=== PATIENT | female | born 1950 | race Two or more races ===

== ENCOUNTER 2016-09-13 12:44 | Inpatient (IN) | payer MEDICARE ==
[~2016-09-13] VITALS: Ht 172.7 cm; Wt 100.5 kg
[~2016-09-13 12:44] MED LIST: AML5T PO; CARI-277 PO; MELO-41 PO; SIMV5TAB50 PO
[2016-09-13 13:41] LABS: Basophils # (auto) 0.1 uL; Basophils % (auto) 1.1 % (0.0-2.0); Eosinophils # (auto) 0.1 uL; Eosinophils % (auto) 2.3 % (0.0-7.0); Hematocrit 39.3 % (36.0-46.0); Hemoglobin 12.9 g/dL (12.2-16.2); Lymphocytes # (auto) 1.4 uL; Mean Corpuscular Hemoglobin 30.1 pg (28.0-32.0); Mean Corpuscular Hgb Conc. 32.9 g/dL (32.0-36.0); Mean Corpuscular Volume 91.6 fL (80.0-100.0); Mean Platelet Volume 7.1 fL (7.4-10.4); Monocytes # (auto) 0.7 uL; Monocytes % (auto) 11.3 % (0.0-12.0); Neutrophils # (auto) 3.8 uL; Neutrophils % (auto) 62.3 % (37.0-80.0); Platelet Count (auto) 332 10^3/uL (140-450); Red Cell Distribution Width 14.2 % (11.6-16.0); White Blood Cell 6.1 10^3/uL (4.4-10.8)
[2016-09-13 13:53] LABS: Albumin 3.6 g/dL (3.4-5.0); BUN/Creatinine Ratio 29.7; Bilirubin, Total 0.3 mg/dL (0.2-1.0); Calcium 8.8 mg/dL (8.5-10.1); Potassium 4.9 mmol/L (3.5-5.1); Total Protein 7.9 g/dL (6.4-8.2)
[2016-09-13] MEDS ORDERED: SODIUM CHLORIDE 0.9% 1,000 ML IV ONE (17:23)
[2016-09-13] MEDS ORDERED: cefTRIAXone 1GM/50ML D5W 50 ML IV ONE (17:30)
[2016-09-13] MEDS ORDERED: DOCUSATE SOD 100 MG CAP PO PRN (18:00)
[2016-09-13] MEDS ORDERED: NITROGLYCERIN 0.4 MG SL TAB SL PRN (18:00)
[2016-09-13] MEDS ORDERED: ONDANSETRON HCL 4 MG/2 ML VIAL IV PRN (18:00)
[2016-09-13] MEDS ORDERED: ACETAMINOPHEN 325 MG TAB PO PRN (18:00)
[2016-09-13] MEDS ORDERED: TEMAZEPAM 15 MG CAP PO PRN (18:00)
[2016-09-13] MEDS ORDERED: POTASSIUM CHL 10 Meq TABLET PO ONE (18:00)
[2016-09-13] MEDS ORDERED: CARISOPRODOL 350 MG TAB PO PRN (18:00)
[2016-09-13] MEDS ORDERED: MORPHINE SULF INJ 2 MG/ML SYRINGE 1ML IV PRN (18:00)
[2016-09-13] MEDS ORDERED: FUROSEMIDE 40 MG/4 ML VIAL IV ONE (18:00)
[2016-09-13] MEDS ORDERED: amLODIPine BESYLATE 5 MG TAB PO ONE (18:15)
[2016-09-13] MEDS: ENOXAPARIN SOD 40 MG/0.4 ML SYRINGE SC SCH (18:27)
[2016-09-13] MEDS: MULTIPLE VITAMIN TAB PO SCH (18:27)
[2016-09-13 22:00] VITALS: BP 133/83
[2016-09-13] MEDS: ATORVASTATIN 20 MG TAB PO SCH (23:07)
[2016-09-13] MEDS: CLINDAMYCIN 300MG IV 50 ML IV SCH (23:09)
[2016-09-13] MEDS: HYDROcodone-ACET 5/325MG TAB PO PRN (23:15)
[2016-09-13] MEDS: SODIUM CHLOR 0.9% PF (SALINE LOCK) 10ML VIAL IV SCH (23:34)
[2016-09-14 01:13] VITALS: BP 133/83
[2016-09-14] MEDS ORDERED: HYDR-4416 PO (02:03)
[2016-09-14 04:50] LABS: Basophils # (auto) 0 uL; Basophils % (auto) 0.4 % (0.0-2.0); Eosinophils # (auto) 0.2 uL; Eosinophils % (auto) 3.6 % (0.0-7.0); Hematocrit 36.4 % (36.0-46.0); Lymphocytes # (auto) 1.9 uL; Lymphocytes % (auto) 36.2 % (10.0-50.0); Mean Corpuscular Hemoglobin 30.4 pg (28.0-32.0); Mean Corpuscular Hgb Conc. 32.9 g/dL (32.0-36.0); Mean Corpuscular Volume 92.3 fL (80.0-100.0); Mean Platelet Volume 6.8 fL (7.4-10.4); Monocytes # (auto) 0.7 uL; Monocytes % (auto) 14.6 % (0.0-12.0); Neutrophils # (auto) 2.3 uL; Neutrophils % (auto) 45.2 % (37.0-80.0); Platelet Count (auto) 312 10^3/uL (140-450); Red Cell Distribution Width 14.1 % (11.6-16.0); White Blood Cell 5.1 10^3/uL (4.4-10.8)
[2016-09-14 05:00] VITALS: BP 137/94
[2016-09-14 05:13] LABS: Albumin 3.3 g/dL (3.4-5.0); BUN/Creatinine Ratio 25.4; Bilirubin, Total 0.3 mg/dL (0.2-1.0); Calcium 8.6 mg/dL (8.5-10.1); Potassium 4.2 mmol/L (3.5-5.1); Total Protein 6.9 g/dL (6.4-8.2)
[2016-09-14] MEDS: HYDROcodone-ACET 5/325MG TAB PO PRN ×4 (05:18→22:11)
[2016-09-14] MEDS: CLINDAMYCIN 300MG IV 50 ML IV SCH ×3 (05:19→22:11)
[2016-09-14] MEDS: SODIUM CHLOR 0.9% PF (SALINE LOCK) 10ML VIAL IV SCH ×3 (05:24→22:11)
[2016-09-14 09:00] VITALS: BP 118/60
[2016-09-14] MEDS: cefTRIAXone 1GM/50ML D5W 50 ML IV SCH (09:17)
[2016-09-14] MEDS: ENOXAPARIN SOD 40 MG/0.4 ML SYRINGE SC SCH (09:17)
[2016-09-14] MEDS: FUROSEMIDE 40 MG/4 ML VIAL IV SCH (09:18)
[2016-09-14] MEDS: POTASSIUM CHL 10 Meq TABLET PO SCH (09:18)
[2016-09-14] MEDS: MULTIPLE VITAMIN TAB PO SCH (09:18)
[2016-09-14] MEDS: amLODIPine BESYLATE 5 MG TAB PO SCH (09:19)
[2016-09-14] MEDS: MOBIC 7.5 MG PO SCH (09:19)
[2016-09-14 13:00] VITALS: BP 120/70
[2016-09-14 16:51] VITALS: BP 144/92
[2016-09-14] MEDS: BOOST PLUS 8 ounce PO SCH (18:25)
[2016-09-14 20:00] VITALS: BP 130/61
[2016-09-14] MEDS: ATORVASTATIN 20 MG TAB PO SCH (22:11)
[2016-09-15 05:14] VITALS: BP 126/70
[2016-09-15] MEDS: SODIUM CHLOR 0.9% PF (SALINE LOCK) 10ML VIAL IV SCH ×2 (05:23→14:00)
[2016-09-15] MEDS: CLINDAMYCIN 300MG IV 50 ML IV SCH ×2 (05:23→14:00)
[2016-09-15 06:44] LABS: Basophils # (auto) 0.1 uL; Basophils % (auto) 1.9 % (0.0-2.0); Eosinophils # (auto) 0.4 uL; Eosinophils % (auto) 9.1 % (0.0-7.0); Hematocrit 39.9 % (36.0-46.0); Hemoglobin 13.1 g/dL (12.2-16.2); Lymphocytes # (auto) 1.5 uL; Lymphocytes % (auto) 38.1 % (10.0-50.0); Mean Corpuscular Hemoglobin 30.3 pg (28.0-32.0); Mean Corpuscular Hgb Conc. 32.7 g/dL (32.0-36.0); Mean Corpuscular Volume 92.7 fL (80.0-100.0); Mean Platelet Volume 7.1 fL (7.4-10.4); Monocytes # (auto) 0.5 uL; Monocytes % (auto) 12.5 % (0.0-12.0); Neutrophils # (auto) 1.6 uL; Neutrophils % (auto) 38.4 % (37.0-80.0); Platelet Count (auto) 310 10^3/uL (140-450); Red Cell Distribution Width 13.3 % (11.6-16.0); White Blood Cell 4.1 10^3/uL (4.4-10.8)
[2016-09-15 07:08] LABS: Potassium 4.5 mmol/L (3.5-5.1)
[2016-09-15 07:13] LABS: Albumin 3.3 g/dL (3.4-5.0); BUN/Creatinine Ratio 21.7; Calcium 8.7 mg/dL (8.5-10.1)
[2016-09-15 07:15] LABS: Bilirubin, Total 0.3 mg/dL (0.2-1.0); Total Protein 7.5 g/dL (6.4-8.2)
[2016-09-15] MEDS: HYDROcodone-ACET 5/325MG TAB PO PRN (07:35)
[2016-09-15] MEDS: BOOST PLUS 8 ounce PO SCH ×2 (08:00→12:27)
[2016-09-15 08:45] VITALS: BP 143/70
[2016-09-15] MEDS: FUROSEMIDE 40 MG/4 ML VIAL IV SCH (09:19)
[2016-09-15] MEDS: cefTRIAXone 1GM/50ML D5W 50 ML IV SCH (09:19)
[2016-09-15] MEDS: ENOXAPARIN SOD 40 MG/0.4 ML SYRINGE SC SCH (09:19)
[2016-09-15] MEDS: MOBIC 7.5 MG PO SCH (09:20)
[2016-09-15] MEDS: POTASSIUM CHL 10 Meq TABLET PO SCH (09:20)
[2016-09-15] MEDS: amLODIPine BESYLATE 5 MG TAB PO SCH (09:20)
[2016-09-15] MEDS: MULTIPLE VITAMIN TAB PO SCH (09:20)
[2016-09-15 12:59] VITALS: BP 144/78
[2016-09-15 13:33] VITALS: BP 143/70
== END 2016-09-15 15:18 | disposition home or self-care (01) | DRG 603 ==
LOC: ER 12:46 → TELE 12:47 → TELE-EAST 21:31 → EAST 09-14 09:20
PROVIDERS: ADMIT Internal Medicine; ATTEND Internal Medicine
DX: L03.115 Cellulitis of right lower limb (principal); L03.116 Cellulitis of left lower limb; E78.5 Hyperlipidemia, unspecified; I87.2 Venous insufficiency (chronic) (peripheral); Z83.3 Family history of diabetes mellitus; Z82.3 Family history of stroke; Z82.49 Family history of ischemic heart disease and other diseases of the circulatory system; Z88.8 Allergy status to other drugs, medicaments and biological substances; Z79.899 Other long term (current) drug therapy; Z90.710 Acquired absence of both cervix and uterus; I10 Essential (primary) hypertension
CPT/HCPCS: 36415; 80053; 85025; 87040; 93306; 93970; 96365; 96375; J0696; J3490

== ENCOUNTER → 2017-03-04 | Outpatient (CLI) | payer MEDICARE ==
[~2017-03-04] MED LIST changes: +HYDR-4416 PO
== END | disposition home or self-care (01) ==
LOC: LAB 15:52
PROVIDERS: ATTEND Family Medicine
DX: R21 Rash and other nonspecific skin eruption (principal)
CPT/HCPCS: 87205

== ENCOUNTER → 2017-11-14 | Outpatient (CLI) | payer MEDICARE ==
[2017-11-14 08:28] LABS: Basophils # (auto) 0 uL; Basophils % (auto) 0.5 % (0.0-2.0); Eosinophils # (auto) 0.1 uL; Hemoglobin 13.4 g/dL (12.2-16.2); Lymphocytes # (auto) 1.3 uL; Lymphocytes % (auto) 30.9 % (10.0-50.0); Mean Corpuscular Hemoglobin 31.1 pg (28.0-32.0); Mean Corpuscular Hgb Conc. 33.5 g/dL (32.0-36.0); Mean Corpuscular Volume 92.7 fL (80.0-100.0); Monocytes # (auto) 0.4 uL; Monocytes % (auto) 9.8 % (0.0-12.0); Neutrophils # (auto) 2.4 uL; Neutrophils % (auto) 55.8 % (37.0-80.0); Nucleated Red Blood Cells % 0.1 %; Platelet Count (auto) 280 10^3/uL (140-450); Red Blood Cells 4.31 10^6/uL (4.0-5.20); White Blood Cell 4.2 10^3/uL (4.4-10.8)
[2017-11-14 08:51] LABS: Urine Bacteria FEW /hpf (None Seen); Urine Blood Negative /uL (Negative); Urine Mucus FEW (None Seen); Urine Specific Gravity 1.015 (1.001-1.035); Urine WBC 1 /hpf (0 - 5)
[2017-11-14 09:10] LABS: Cholesterol 213 mg/dL (< 200); HDL Cholesterol 123 mg/dL (40-59); LDL Cholesterol 76 mg/dL (< 100); Triglycerides 53 mg/dL (< 150)
== END | disposition home or self-care (01) ==
LOC: LAB 08:01
PROVIDERS: ATTEND Family Medicine
DX: I10 Essential (primary) hypertension (principal); E66.9 Obesity, unspecified; E78.2 Mixed hyperlipidemia; M17.9 Osteoarthritis of knee, unspecified; R79.89 Other specified abnormal findings of blood chemistry
CPT/HCPCS: 36415; 80061; 81001; 82607; 83036; 84443; 85025

== ENCOUNTER → 2019-01-12 | Outpatient (CLI) | payer MEDICARE ==
[2019-01-12 10:15] LABS: Basophils # (auto) 0 uL; Basophils % (auto) 0.4 % (0.0-2.0); Eosinophils # (auto) 0.1 uL; Eosinophils % (auto) 2.6 % (0.0-7.0); Hemoglobin 13.6 g/dL (12.2-16.2); Lymphocytes # (auto) 1.1 uL; Lymphocytes % (auto) 25.5 % (10.0-50.0); Mean Corpuscular Hemoglobin 31.1 pg (28.0-32.0); Mean Corpuscular Volume 91.7 fL (80.0-100.0); Monocytes # (auto) 0.3 uL; Monocytes % (auto) 8.1 % (0.0-12.0); Neutrophils # (auto) 2.6 uL; Neutrophils % (auto) 63.4 % (37.0-80.0); Nucleated Red Blood Cells % 0.1 %; Platelet Count (auto) 221 10^3/uL (140-450); Red Blood Cells 4.36 10^6/uL (4.0-5.20); Red Cell Distribution Width 14.2 % (11.8-14.3); White Blood Cell 4.1 10^3/uL (4.4-10.8)
[2019-01-12 10:23] LABS: Urine Bacteria FEW /hpf (None Seen); Urine Blood Negative /uL (Negative); Urine Specific Gravity 1.013 (1.001-1.035); Urine WBC 2 /hpf (0 - 5)
[2019-01-12 10:40] LABS: Potassium 4.5 mmol/L (3.5-5.1)
[2019-01-12 10:45] LABS: BUN/Creatinine Ratio 24.4; Bilirubin, Total 0.4 mg/dL (0.2-1.0); Calcium 9.4 mg/dL (8.5-10.1); Total Protein 7.9 g/dL (6.4-8.2)
== END | disposition home or self-care (01) ==
LOC: LAB 09:45
PROVIDERS: ATTEND Family Medicine
DX: E78.49 Other hyperlipidemia (principal); I10 Essential (primary) hypertension; E66.9 Obesity, unspecified; Z79.899 Other long term (current) drug therapy
CPT/HCPCS: 36415; 80053; 80061; 81001; 82306; 83036; 84443; 85025

== ENCOUNTER → 2019-05-18 | Outpatient (CLI) | payer MEDICARE ==
[~2019-05-18] MED LIST changes: -HYDR-4416 PO; +HYDR-4611 PO; -MELO-41 PO; +MELO7.5T9 PO
[2019-05-18 13:32] LABS: Albumin 3.9 g/dL (3.4-5.0); Potassium 4.6 mmol/L (3.5-5.1)
[2019-05-18 13:39] LABS: BUN/Creatinine Ratio 25.5; Bilirubin, Total 0.4 mg/dL (0.2-1.0); Calcium 8.9 mg/dL (8.5-10.1)
== END | disposition home or self-care (01) ==
LOC: LAB 11:48
PROVIDERS: ATTEND Family Medicine
DX: E78.49 Other hyperlipidemia (principal); I10 Essential (primary) hypertension; E66.09 Other obesity due to excess calories
CPT/HCPCS: 36415; 80053; 80061

== ENCOUNTER 2020-06-19 11:27 | Emergency (ER) | payer MEDICARE ==
[~2020-06-19] VITALS: Ht 170.2 cm; Wt 90.7 kg
[2020-06-19] MEDS ORDERED: SODIUM CHLORIDE 0.9% 1,000 ML IV ONE (12:30)
[2020-06-19 13:11] LABS: Basophils # (auto) 0 10 ^3/uL (0-0.2); Basophils % (auto) 0.3 % (0.0-2.0); Eosinophils # (auto) 0.1 10 ^3/uL (0-0.8); Eosinophils % (auto) 1.4 % (0.0-7.0); Hematocrit 38.6 % (36.0-46.0); Hemoglobin 13.1 g/dL (12.2-16.2); Lymphocytes # (auto) 0.9 10 ^3/uL (0.4-5.4); Lymphocytes % (auto) 16.1 % (10.0-50.0); Mean Corpuscular Volume 91.4 fL (80.0-100.0); Monocytes # (auto) 0.3 10 ^3/uL (0-1.3); Monocytes % (auto) 5.6 % (0.0-12.0); Neutrophils # (auto) 4.2 10 ^3/uL (1.6-8.6); Neutrophils % (auto) 76.6 % (37.0-80.0); Nucleated Red Blood Cells % 0.1 %; Platelet Count (auto) 232 10^3/uL (140-450); Red Blood Cells 4.23 10^6/uL (4.0-5.20); Red Cell Distribution Width 13.6 % (11.8-14.3); White Blood Cell 5.4 10^3/uL (4.4-10.8)
[2020-06-19 13:18] LABS: Albumin 3.8 g/dL (3.4-5.0); Anion Gap 6 (5-15); Blood Urea Nitrogen 25 mg/dL (7-18); Calcium 8.9 mg/dL (8.5-10.1); Carbon Dioxide 27 mmol/L (21-32); Chloride 107 mmol/L (98-107); Glucose 111 mg/dL (74-106); Potassium 4.4 mmol/L (3.5-5.1); Sodium 140 mmol/L (136-145)
[2020-06-19 13:24] LABS: Alanine Aminotransferase 13 U/L (13-56); Alkaline Phosphatase 74 U/L (45-117); Aspartate Aminotransferase 18 U/L (15-37); BUN/Creatinine Ratio 22.7; Bilirubin, Total 0.3 mg/dL (0.2-1.0); GFR African American 63 mL/min; GFR Non-African American 52 mL/min; Total Protein 7.6 g/dL (6.4-8.2)
[2020-06-19 15:00] VITALS: BP 129/61
== END 2020-06-19 15:19 | disposition home or self-care (01) ==
LOC: ER 11:27
DX: R19.7 Diarrhea, unspecified (principal); E86.0 Dehydration; E78.5 Hyperlipidemia, unspecified; I10 Essential (primary) hypertension; Z79.899 Other long term (current) drug therapy; Z90.710 Acquired absence of both cervix and uterus
CPT/HCPCS: 36415; 80053; 84484; 85025; 93005; 96360; 99284; J7030

== ENCOUNTER → 2020-08-13 | Outpatient (CLI) | payer MEDICARE ==
[2020-08-13 10:06] LABS: Basophils # (auto) 0 10 ^3/uL (0-0.2); Basophils % (auto) 0.3 % (0.0-2.0); Eosinophils # (auto) 0.2 10 ^3/uL (0-0.8); Eosinophils % (auto) 4.2 % (0.0-7.0); Hematocrit 39.5 % (36.0-46.0); Hemoglobin 12.8 g/dL (12.2-16.2); Lymphocytes # (auto) 1.7 10 ^3/uL (0.4-5.4); Lymphocytes % (auto) 35.2 % (10.0-50.0); Mean Corpuscular Hemoglobin 30.1 pg (28.0-32.0); Mean Corpuscular Hgb Conc. 32.4 g/dL (32.0-36.0); Mean Corpuscular Volume 92.8 fL (80.0-100.0); Monocytes # (auto) 0.5 10 ^3/uL (0-1.3); Monocytes % (auto) 9.6 % (0.0-12.0); Neutrophils # (auto) 2.5 10 ^3/uL (1.6-8.6); Neutrophils % (auto) 50.7 % (37.0-80.0); Nucleated Red Blood Cells % 0.1 %; Platelet Count (auto) 246 10^3/uL (140-450); Red Blood Cells 4.26 10^6/uL (4.0-5.20); Red Cell Distribution Width 14.2 % (11.8-14.3); White Blood Cell 4.9 10^3/uL (4.4-10.8)
[2020-08-13 11:00] LABS: Albumin 3.7 g/dL (3.4-5.0); Potassium 4.6 mmol/L (3.5-5.1)
[2020-08-13 11:09] LABS: BUN/Creatinine Ratio 22.2; Bilirubin, Total 0.4 mg/dL (0.2-1.0); Total Protein 7.6 g/dL (6.4-8.2)
[2020-08-14 12:39] LABS: Urine Bacteria NONE SEEN /hpf (None Seen); Urine Blood Negative /uL (Negative); Urine Specific Gravity 1.014 (1.001-1.035); Urine WBC 2 /hpf (0 - 5)
== END | disposition home or self-care (01) ==
LOC: LAB 09:52
PROVIDERS: ATTEND Family Medicine
DX: I10 Essential (primary) hypertension (principal); E78.49 Other hyperlipidemia; R73.09 Other abnormal glucose; Z79.899 Other long term (current) drug therapy
CPT/HCPCS: 36415; 80053; 80061; 81001; 82306; 82607; 83036; 85025

== ENCOUNTER → 2021-09-29 | Outpatient (CLI) | payer MEDICARE ==
[2021-09-29 08:07] LABS: Basophils # (auto) 0 10 ^3/uL (0-0.2); Basophils % (auto) 0.6 % (0.0-2.0); Eosinophils # (auto) 0.2 10 ^3/uL (0-0.8); Eosinophils % (auto) 4.3 % (0.0-7.0); Hematocrit 39.3 % (36.0-46.0); Hemoglobin 13.5 g/dL (12.2-16.2); Lymphocytes # (auto) 1.3 10 ^3/uL (0.4-5.4); Lymphocytes % (auto) 27.4 % (10.0-50.0); Mean Corpuscular Hemoglobin 31.4 pg (28.0-32.0); Mean Corpuscular Hgb Conc. 34.3 g/dL (32.0-36.0); Mean Corpuscular Volume 91.6 fL (80.0-100.0); Monocytes # (auto) 0.4 10 ^3/uL (0-1.3); Monocytes % (auto) 8.1 % (0.0-12.0); Neutrophils # (auto) 2.7 10 ^3/uL (1.6-8.6); Neutrophils % (auto) 59.6 % (37.0-80.0); Nucleated Red Blood Cells % 0.1 %; Red Blood Cells 4.29 10^6/uL (4.0-5.20); Red Cell Distribution Width 13.5 % (11.8-14.3); White Blood Cell 4.6 10^3/uL (4.4-10.8)
[2021-09-29 08:11] LABS: Urine Bacteria NONE SEEN /hpf (None Seen); Urine Blood Negative /uL (Negative); Urine WBC <1 /hpf (0 - 5)
[2021-09-29 08:32] LABS: Albumin 3.8 g/dL (3.4-5.0); BUN/Creatinine Ratio 24.1; Potassium 4.7 mmol/L (3.5-5.1)
[2021-09-29 08:36] LABS: Bilirubin, Total 0.3 mg/dL (0.2-1.0); Total Protein 7.5 g/dL (6.4-8.2)
== END | disposition home or self-care (01) ==
LOC: LAB 07:46
PROVIDERS: ATTEND Family Medicine
DX: E55.9 Vitamin D deficiency, unspecified (principal); E78.49 Other hyperlipidemia; I10 Essential (primary) hypertension; E66.9 Obesity, unspecified; M25.561 Pain in right knee; R73.09 Other abnormal glucose; Z83.3 Family history of diabetes mellitus
CPT/HCPCS: 36415; 80053; 80061; 81001; 82306; 83036; 84443; 85025

== ENCOUNTER 2022-04-30 08:40 | Inpatient (IN) | payer MEDICARE ==
[~2022-04-30] VITALS: Ht 170.2 cm; Wt 96.3 kg
[2022-04-30 10:03] LABS: Basophils # (auto) 0 10 ^3/uL (0-0.2); Basophils % (auto) 0.2 % (0.0-2.0); Eosinophils # (auto) 0 10 ^3/uL (0-0.8); Eosinophils % (auto) 0.3 % (0.0-7.0); Hematocrit 41.1 % (36.0-46.0); Hemoglobin 13.7 g/dL (12.2-16.2); Lymphocytes # (auto) 0.5 10 ^3/uL (0.4-5.4); Lymphocytes % (auto) 5.4 % (10.0-50.0); Mean Corpuscular Hemoglobin 30.5 pg (28.0-32.0); Mean Corpuscular Hgb Conc. 33.2 g/dL (32.0-36.0); Mean Corpuscular Volume 91.7 fL (80.0-100.0); Monocytes # (auto) 0.3 10 ^3/uL (0-1.3); Monocytes % (auto) 3.6 % (0.0-12.0); Neutrophils # (auto) 8.7 10 ^3/uL (1.6-8.6); Neutrophils % (auto) 90.5 % (37.0-80.0); Red Blood Cells 4.48 10^6/uL (4.0-5.20); Red Cell Distribution Width 13.9 % (11.8-14.3); White Blood Cell 9.6 10^3/uL (4.4-10.8)
[2022-04-30 10:38] LABS: INR 0.92 (0.9-1.15); Partial Thromboplastin Time 26.8 sec (24.6-33.4)
[2022-04-30 10:48] LABS: Albumin 3.9 g/dL (3.4-5.0); Calcium 9.1 mg/dL (8.5-10.1); Magnesium 2.1 mg/dL (1.6-2.6); Potassium 4.5 mmol/L (3.5-5.1)
[2022-04-30 10:51] LABS: Bilirubin, Total 0.6 mg/dL (0.2-1.0); Total Protein 7.6 g/dL (6.4-8.2)
[2022-04-30] MEDS ORDERED: NITROGLYCERIN 0.4 MG SL TAB SL ONE (11:45)
[2022-04-30] MEDS ORDERED: ASPirin 325 MG TAB PO ONE (11:45)
[2022-04-30] MEDS ORDERED: MORPHINE SULFATE INJ 2 MG/ml SYRG IV PRN (13:45)
[2022-04-30] MEDS ORDERED: ONDANSETRON HCL 4 MG/2 ML VIAL IV PRN (13:45)
[2022-04-30] MEDS ORDERED: NITROGLYCERIN 0.4 MG SL TAB SL PRN (13:45)
[2022-04-30] MEDS: SODIUM CHLOR 0.9% PF (SALINE LOCK) 10ML VIAL/SYR IV SCH ×2 (14:08→22:03)
[2022-04-30 17:47] LABS: Urine Amorphous Crystal FEW /hpf (None Seen); Urine Bacteria NONE SEEN /hpf (None Seen); Urine Blood Negative /uL (Negative); Urine Mucus FEW (None Seen); Urine Specific Gravity 1.015 (1.001-1.035); Urine WBC <1 /hpf (0 - 5)
[2022-04-30 20:14] VITALS: BP 131/53
[2022-04-30 22:00] VITALS: BP 121/46
[2022-05-01 05:00] VITALS: BP 136/61
[2022-05-01] MEDS: MORPHINE SULFATE INJ 2 MG/ml SYRG IV PRN ×2 (05:42→11:34)
[2022-05-01] MEDS: SODIUM CHLOR 0.9% PF (SALINE LOCK) 10ML VIAL/SYR IV SCH ×3 (05:42→22:20)
[2022-05-01 06:15] LABS: BUN/Creatinine Ratio 27.3; Calcium 8.9 mg/dL (8.5-10.1); Potassium 4.3 mmol/L (3.5-5.1)
[2022-05-01 06:37] LABS: Basophils # (auto) 0 10 ^3/uL (0-0.2); Basophils % (auto) 0.2 % (0.0-2.0); Eosinophils # (auto) 0.1 10 ^3/uL (0-0.8); Eosinophils % (auto) 1.8 % (0.0-7.0); Hematocrit 38.3 % (36.0-46.0); Hemoglobin 12.8 g/dL (12.2-16.2); Lymphocytes # (auto) 1.3 10 ^3/uL (0.4-5.4); Lymphocytes % (auto) 21.1 % (10.0-50.0); Mean Corpuscular Hemoglobin 30.6 pg (28.0-32.0); Mean Corpuscular Hgb Conc. 33.3 g/dL (32.0-36.0); Mean Corpuscular Volume 91.7 fL (80.0-100.0); Monocytes # (auto) 0.7 10 ^3/uL (0-1.3); Monocytes % (auto) 10.7 % (0.0-12.0); Neutrophils # (auto) 4.2 10 ^3/uL (1.6-8.6); Neutrophils % (auto) 66.2 % (37.0-80.0); Nucleated Red Blood Cells % 0.1 %; Red Blood Cells 4.17 10^6/uL (4.0-5.20); Red Cell Distribution Width 14.1 % (11.8-14.3); White Blood Cell 6.3 10^3/uL (4.4-10.8)
[2022-05-01 08:00] VITALS: BP 135/61
[2022-05-01 09:00] VITALS: BP 135/61
[2022-05-01] MEDS ORDERED: CARI-277 PO (09:08)
[2022-05-01] MEDS ORDERED: TRIA75TA55 PO (09:08)
[2022-05-01] MEDS ORDERED: MELO1TAB56 PO (09:08)
[2022-05-01] MEDS ORDERED: SIMV-13 PO (09:08)
[2022-05-01] MEDS ORDERED: MORP1TAB14 PO (09:12)
[2022-05-01] MEDS ORDERED: CALCTAB62 OR (09:12)
[2022-05-01] MEDS ORDERED: HYDR-4798 PO (09:12)
[2022-05-01] MEDS: ASPirin 81 mg TAB PO SCH (10:00)
[2022-05-01] MEDS ORDERED: ENOXAPARIN SOD 40 MG/0.4 ML SYRINGE SC ONE (12:00)
[2022-05-01 12:21] LABS: Cholesterol 178 mg/dL (< 200)
[2022-05-01 12:24] LABS: HDL Cholesterol 126 mg/dL (40-59); LDL Cholesterol 59 mg/dL (< 100); Triglycerides 38 mg/dL (< 150)
[2022-05-01] MEDS ORDERED: HYDROcodone-ACET 10/325MG TAB PO PRN (12:45)
[2022-05-01 13:00] VITALS: BP 118/64
[2022-05-01] MEDS: TRIAMTERENE/HCTZ 37.5/25 MG CAP/TAB PO SCH (13:57)
[2022-05-01] MEDS ORDERED: methylPREDNISolone SOD SUCC 40 MG/ML VL IV ONE (14:15)
[2022-05-01 17:18] VITALS: BP 138/61
[2022-05-01] MEDS ORDERED: IOHEXOL 350 MG/ML 100ML IJ ONE (17:53)
[2022-05-01] MEDS ORDERED: ATORVASTATIN 20 MG TAB PO SCH (18:00)
[2022-05-01 22:00] VITALS: BP 131/57
[2022-05-01] MEDS: MORPHINE SULF 30 mg ER tab PO SCH (22:20)
[2022-05-02 05:00] VITALS: BP 152/79
[2022-05-02] MEDS: SODIUM CHLOR 0.9% PF (SALINE LOCK) 10ML VIAL/SYR IV SCH ×3 (06:13→21:38)
[2022-05-02 08:00] VITALS: BP 138/62
[2022-05-02 09:00] VITALS: BP 138/61
[2022-05-02] MEDS: amLODIPine BESYLATE 5 MG TAB PO SCH (09:46)
[2022-05-02] MEDS: ENOXAPARIN SOD 40 MG/0.4 ML SYRINGE SC SCH (09:51)
[2022-05-02] MEDS: TRIAMTERENE/HCTZ 37.5/25 MG CAP/TAB PO SCH (09:51)
[2022-05-02] MEDS: MORPHINE SULF 30 mg ER tab PO SCH ×3 (09:51→21:39)
[2022-05-02] MEDS: MELOXICAM 15 MG PO SCH (09:52)
[2022-05-02] MEDS: ASPirin 81 mg TAB PO SCH (09:52)
[2022-05-02 13:11] VITALS: BP 112/55
[2022-05-02] MEDS ORDERED: methylPREDNISolone SOD SUCC 40 MG/ML VL IV ONE (14:15)
[2022-05-02 17:00] VITALS: BP 133/51
[2022-05-02 22:00] VITALS: BP 119/48
[2022-05-02] MEDS ORDERED: CARISOPRODOL 350 MG TAB PO SCH (22:00)
[2022-05-03 05:00] VITALS: BP 122/56
[2022-05-03] MEDS: SODIUM CHLOR 0.9% PF (SALINE LOCK) 10ML VIAL/SYR IV SCH ×2 (05:37→13:40)
[2022-05-03] MEDS ORDERED: ADENOSINE 81 MG in GIVE UN-DILUTED 0 ML IV STA (08:22)
[2022-05-03 09:00] VITALS: BP 129/53
[2022-05-03 09:21] VITALS: BP 164/74
[2022-05-03] MEDS: TRIAMTERENE/HCTZ 37.5/25 MG CAP/TAB PO SCH (10:40)
[2022-05-03] MEDS: ASPirin 81 mg TAB PO SCH (10:40)
[2022-05-03] MEDS: amLODIPine BESYLATE 5 MG TAB PO SCH (10:40)
[2022-05-03] MEDS: MELOXICAM 15 MG PO SCH (10:40)
[2022-05-03] MEDS: MORPHINE SULF 30 mg ER tab PO SCH (10:41)
[2022-05-03] MEDS: ENOXAPARIN SOD 40 MG/0.4 ML SYRINGE SC SCH (10:41)
[2022-05-03] MEDS ORDERED: PRED1PAK9 PO (11:13)
[2022-05-03] MEDS ORDERED: FAMO20TA10 PO (11:14)
[2022-05-03 13:00] VITALS: BP 103/53
[2022-05-03 14:59] VITALS: BP 129/53
== END 2022-05-03 16:40 | disposition home or self-care (01) | DRG 303 ==
LOC: ER 08:40 → TELE 13:51 → TELE-EAST 18:51
PROVIDERS: ADMIT Nurse Practitioner Family; ATTEND Internal Medicine
DX: I25.10 Atherosclerotic heart disease of native coronary artery without angina pectoris (principal); E66.9 Obesity, unspecified; E78.5 Hyperlipidemia, unspecified; M19.90 Unspecified osteoarthritis, unspecified site; I10 Essential (primary) hypertension; M06.9 Rheumatoid arthritis, unspecified; R79.82 Elevated C-reactive protein (CRP); G89.29 Other chronic pain; Z96.653 Presence of artificial knee joint, bilateral; Z82.3 Family history of stroke; Z82.49 Family history of ischemic heart disease and other diseases of the circulatory system; Z83.3 Family history of diabetes mellitus; Z90.710 Acquired absence of both cervix and uterus; Z68.33 Body mass index [BMI] 33.0-33.9, adult
CPT/HCPCS: 36415; 71045; 71275; 78452; 80048; 80053; 80061; 81001; 82550; 83735; 83880; 84443; 84484; 85025; 85379; 85610; 85652; 85730; 86038; 86141; 86431; 93005; 93017; 93306; 96374; 96375; G0378; J0153; J2405

== ENCOUNTER → 2022-05-12 | Outpatient (CLI) | payer MEDICARE ==
[~2022-05-12] MED LIST changes: +CALCTAB62 OR; +FAMO20TA10 PO; +HYDR-4798 PO; +MELO1TAB56 PO; -MELO7.5T9 PO; +MORP1TAB14 PO; +PRED1PAK9 PO; +SIMV-13 PO; -SIMV5TAB50 PO; +TRIA75TA55 PO
[2022-05-12 10:32] LABS: Cholesterol 267 mg/dL (< 200)
[2022-05-12 10:34] LABS: HDL Cholesterol 136 mg/dL (40-59); LDL Cholesterol 128 mg/dL (< 100); Triglycerides 62 mg/dL (< 150)
== END | disposition home or self-care (01) ==
LOC: LAB 09:22
PROVIDERS: ATTEND Student in an Organized Health Care Education/Training Program
DX: I10 Essential (primary) hypertension (principal); M25.50 Pain in unspecified joint; E78.5 Hyperlipidemia, unspecified; E66.9 Obesity, unspecified
CPT/HCPCS: 36415; 80061; 86038; 86431

== ENCOUNTER → 2022-10-20 | Outpatient (CLI) | payer MEDICARE ==
[2022-10-20 09:08] LABS: Basophils # (auto) 0 10 ^3/uL (0-0.2); Basophils % (auto) 0.7 % (0.0-2.0); Eosinophils # (auto) 0.1 10 ^3/uL (0-0.8); Eosinophils % (auto) 2.8 % (0.0-7.0); Hematocrit 41.4 % (36.0-46.0); Hemoglobin 13.8 g/dL (12.2-16.2); Lymphocytes % (auto) 22.5 % (10.0-50.0); Mean Corpuscular Hemoglobin 31.4 pg (28.0-32.0); Mean Corpuscular Hgb Conc. 33.3 g/dL (32.0-36.0); Mean Corpuscular Volume 94.2 fL (80.0-100.0); Monocytes # (auto) 0.5 10 ^3/uL (0-1.3); Monocytes % (auto) 10.8 % (0.0-12.0); Neutrophils # (auto) 2.7 10 ^3/uL (1.6-8.6); Neutrophils % (auto) 63.2 % (37.0-80.0); Nucleated Red Blood Cells % 0.1 %; Red Blood Cells 4.39 10^6/uL (4.0-5.20); Red Cell Distribution Width 14.5 % (11.8-14.3); White Blood Cell 4.3 10^3/uL (4.4-10.8)
[2022-10-20 10:09] LABS: Potassium 4.6 mmol/L (3.5-5.1)
[2022-10-20 10:21] LABS: Albumin 3.6 g/dL (3.4-5.0); BUN/Creatinine Ratio 24.7; Bilirubin, Total 0.3 mg/dL (0.2-1.0); Total Protein 7.4 g/dL (6.4-8.2)
== END | disposition home or self-care (01) ==
LOC: LAB 08:49
PROVIDERS: ATTEND Student in an Organized Health Care Education/Training Program
DX: I10 Essential (primary) hypertension (principal); E78.5 Hyperlipidemia, unspecified; E66.09 Other obesity due to excess calories
CPT/HCPCS: 36415; 80053; 80061; 82274; 85025

== ENCOUNTER 2024-02-11 10:03 | Inpatient (IN) | payer MEDICARE ==
[~2024-02-11] VITALS: Ht 170.2 cm; Wt 91.0 kg
[~2024-02-11 10:03] MED LIST changes: +MELO15TA29 PO; -MELO1TAB56 PO; -SIMV-13 PO; +SIMV40TA18 PO
[2024-02-11] MEDS: amLODIPine BESYLATE 5 MG TAB PO ONE (10:37)
[2024-02-11] MEDS: HYDROcodone-ACET 10/325MG TAB PO ONE (10:55)
[2024-02-11] MEDS: KETOROLAC TROMETH 30 MG/ML 1ML VIAL IV ONE (11:02)
[2024-02-11 11:10] VITALS: PULSE 81; RESP 19; O2SAT 97
[2024-02-11 11:40] LABS: Basophils # (auto) 0 10 ^3/uL (0-0.2); Basophils % (auto) 0.2 % (0.0-2.0); Eosinophils # (auto) 0 10 ^3/uL (0-0.8); Eosinophils % (auto) 0.7 % (0.0-7.0); Hematocrit 40.3 % (36.0-46.0); Hemoglobin 13.8 g/dL (12.2-16.2); Lymphocytes % (auto) 15.5 % (10.0-50.0); Mean Corpuscular Hemoglobin 31.7 pg (28.0-32.0); Mean Corpuscular Hgb Conc. 34.3 g/dL (32.0-36.0); Mean Corpuscular Volume 92.3 fL (80.0-100.0); Monocytes # (auto) 0.5 10 ^3/uL (0-1.3); Monocytes % (auto) 8.3 % (0.0-12.0); Neutrophils # (auto) 4.9 10 ^3/uL (1.6-8.6); Neutrophils % (auto) 75.3 % (37.0-80.0); Nucleated Red Blood Cells % 0.1 %; Red Blood Cells 4.37 10^6/uL (4.0-5.20); Red Cell Distribution Width 14.4 % (11.8-14.3); White Blood Cell 6.5 10^3/uL (4.4-10.8)
[2024-02-11 11:48] LABS: Chloride 107 mmol/L (98-107); Sodium 140 mmol/L (136-145)
[2024-02-11 11:49] LABS: Anion Gap 7 (5-15); Carbon Dioxide 26 mmol/L (20-30)
[2024-02-11 11:50] LABS: Calcium 10.4 mg/dL (8.5-10.1)
[2024-02-11 11:54] LABS: BUN/Creatinine Ratio 22.9 (10.0-20.0); Blood Urea Nitrogen 19 mg/dL (9-23); Glucose 111 mg/dL (74-106)
[2024-02-11] MEDS ORDERED: DOCUSATE SOD 100 MG CAP PO PRN (14:15)
[2024-02-11] MEDS: SODIUM CHLORIDE 0.9% 1,000 ML IV SCH (14:15)
[2024-02-11] MEDS: HYDROmorphone HCL 2 MG/ML VL/or syr IV ONE ×2 (15:19→15:56)
[2024-02-11] MEDS: DexAMETHasone SOD PHOS 10MG/1ML VIAL INJ IV ONE (16:15)
[2024-02-11] MEDS ORDERED: DEXTROSE (50%) 50ML SYRG IV PRN (16:15)
[2024-02-11] MEDS: InsuLIN REG 1unit/0.01ml Soln (100units/ml) SC SCH (17:00)
[2024-02-11] MEDS: ACCU-CHEK COMFORT CURVE STRIP VI SCH (17:00)
[2024-02-11] MEDS: LORazepam 2MG/ML-1ML VIAL IV ONE (18:15)
[2024-02-11] MEDS: HYDROmorphone HCL 2 MG/ML VL/or syr IV PRN (19:24)
[2024-02-11 19:30] VITALS: PULSE 66; RESP 20; O2SAT 98
[2024-02-11] MEDS: FAMOTIDINE 20 MG TAB PO SCH (23:07)
[2024-02-11] MEDS: ATORVASTATIN 20 MG TAB PO SCH (23:07)
[2024-02-11] MEDS: DexAMETHasone SOD PHOS 4 MG/1ML SDV INJ IV SCH (23:07)
[2024-02-11] MEDS: MORPHINE SULF 30 mg ER tab PO SCH (23:09)
[2024-02-12 06:30] LABS: Basophils # (auto) 0 10 ^3/uL (0-0.2); Basophils % (auto) 0.2 % (0.0-2.0); Eosinophils # (auto) 0 10 ^3/uL (0-0.8); Hematocrit 38.2 % (36.0-46.0); Hemoglobin 13.1 g/dL (12.2-16.2); Lymphocytes # (auto) 0.4 10 ^3/uL (0.4-5.4); Lymphocytes % (auto) 8.5 % (10.0-50.0); Mean Corpuscular Hemoglobin 31.9 pg (28.0-32.0); Mean Corpuscular Hgb Conc. 34.3 g/dL (32.0-36.0); Monocytes # (auto) 0.1 10 ^3/uL (0-1.3); Neutrophils % (auto) 89.3 % (37.0-80.0); Red Blood Cells 4.11 10^6/uL (4.0-5.20); Red Cell Distribution Width 14.4 % (11.8-14.3); White Blood Cell 4.4 10^3/uL (4.4-10.8)
[2024-02-12 06:48] LABS: Alkaline Phosphatase 88 U/L (46-116); Anion Gap 10 (5-15); Aspartate Aminotransferase 18 U/L (13-40); BUN/Creatinine Ratio 27.5 (10.0-20.0); Blood Urea Nitrogen 19 mg/dL (9-23); Calcium 9.8 mg/dL (8.7-10.4); Carbon Dioxide 24 mmol/L (20-30); Chloride 107 mmol/L (98-107); Glucose 138 mg/dL (74-106); Potassium 4.4 mmol/L (3.5-5.1); Sodium 141 mmol/L (136-145)
[2024-02-12 06:50] LABS: Albumin 4.2 g/dL (3.2-4.8); Bilirubin, Total 0.5 mg/dL (0.2-1.0); Total Protein 7.2 g/dL (5.7-8.2)
[2024-02-12 07:20] VITALS: PULSE 83; RESP 20; O2SAT 98
[2024-02-12 07:20] LABS: Alanine Aminotransferase < 9 U/L (7-40)
[2024-02-12] MEDS: MORPHINE SULFATE INJ 2 MG/ml SYRG IV PRN (07:51)
[2024-02-12] MEDS: CARISOPRODOL 350 MG TAB PO SCH (09:41)
[2024-02-12] MEDS: TRIAMTERENE/HCTZ 37.5/25 MG CAP/TAB PO SCH (09:42)
[2024-02-12] MEDS: amLODIPine BESYLATE 5 MG TAB PO SCH (09:46)
[2024-02-12 10:15] LABS: Urine Bacteria None Seen /hpf (None Seen)
[2024-02-12 11:27] LABS: Urine Blood Negative /uL (Negative); Urine Clarity Clear (Clear); Urine Color Light-Yellow (Yellow); Urine Protein, UAD Negative (Negative); Urine Urobilinogen Normal (Negative); Urine WBC 2 /hpf (0 - 5); Urine pH 5.5 (5.0-9.0)
[2024-02-12 17:40] VITALS: PULSE 77; RESP 18; O2SAT 98
[2024-02-12 17:45] VITALS: BP 142/92; PULSE 83; RESP 18; TEMP 99; O2SAT 98
[2024-02-12 20:00] VITALS: RESP 18
[2024-02-12 23:22] VITALS: BP 152/63; PULSE 75; RESP 18; TEMP 97.9; O2SAT 98
[2024-02-13] VITALS (8 sets, daily range): BP systolic 139–167; BP diastolic 53–75; PULSE 63–79; RESP 18–22; TEMP 98.1–98.4; O2SAT 95–98
[2024-02-13] MEDS: ONDANSETRON HCL 4 MG/2 ML VIAL IV PRN (13:20)
[2024-02-13] MEDS: CARISOPRODOL 350 MG TAB PO SCH (23:33)
[2024-02-14] VITALS (7 sets, daily range): BP systolic 121–139; BP diastolic 47–91; PULSE 65–71; RESP 17–19; TEMP 37; O2SAT 92–97
== END 2024-02-14 13:55 | disposition home or self-care (01) | DRG 552 ==
LOC: EEVIPCON 10:03 → ER 10:03 → OVERFLOW 16:18 → WEST WING 02-12 17:28
PROVIDERS: ADMIT Nurse Practitioner Family; ATTEND Family Medicine
DX: M54.16 Radiculopathy, lumbar region (principal); M54.31 Sciatica, right side; G89.4 Chronic pain syndrome; E78.5 Hyperlipidemia, unspecified; M25.561 Pain in right knee; M25.562 Pain in left knee; E11.9 Type 2 diabetes mellitus without complications; Z96.653 Presence of artificial knee joint, bilateral; Z74.01 Bed confinement status; Z90.710 Acquired absence of both cervix and uterus; I16.0 Hypertensive urgency
CPT/HCPCS: 36415; 72131; 73562; 80048; 80053; 81001; 82040; 82962; 84484; 85025; G0378; J1100; J1885; J2405